=== PATIENT | female | born 1975 | race Caucasian/White ===

== ENCOUNTER → 2021-11-25 | Day surgery (SDC) | payer OTHER ==
[~2021-11-25] VITALS: Ht 171.4 cm; Wt 90.7 kg
[~2021-11-25] MED LIST: PERCOCET 5-3251 EACH PO; PLAQUENIL200 M1 PO; PROAIR HFA8.5 GM INH
[2021-11-25 11:58] LABS: HCG (URINE) SCREEN NEGATIVE (NEGATIVE)
[2021-11-25 12:32] LABS: HCT 42.8 % (37.0-47.0); HGB 14.4 g/dl (12.5-16.0); MCH 30.4 pg (25.0-31.0); MCHC 33.6 g/dL (32.0-36.0); MCV 90.3 fL (78.0-100.0); MPV 9.5 fL (6.0-9.5); RBC 4.74 M/uL (4.20-5.40); RDW 12.1 % (11.5-14.0); WBC 8.2 K/uL (4.0-10.5)
== END | disposition home or self-care (01) ==
LOC: FAS 11:34
PROVIDERS: Obstetrics & Gynecology
DX: N92.0 Excessive and frequent menstruation with regular cycle (principal); J45.909 Unspecified asthma, uncomplicated; F17.200 Nicotine dependence, unspecified, uncomplicated; Z98.51 Tubal ligation status; Z88.2 Allergy status to sulfonamides; Z20.822 Contact with and (suspected) exposure to COVID-19
CPT/HCPCS: 36415; 84703; 86850; 86900; 86901; J1100; J1170; J2250; J2704; J3010; J7120